=== PATIENT | male | born 1970 | race Asian ===

== ENCOUNTER 2024-03-28 06:15 | Day surgery (SDC) | payer BC, SELFPAY | END 2024-03-28 08:50 | disposition home or self-care (01) | LOC: GI 06:15 | PROVIDERS: ATTENDING PHYSICIAN Specialist | DX: Z12.11 Encounter for screening for malignant neoplasm of colon (principal); Z86.0101 Personal history of adenomatous and serrated colon polyps; D12.3 Benign neoplasm of transverse colon | CPT/HCPCS: 45380; 88305 ==